=== PATIENT | male | born 1960 | race Caucasian/White ===

== ENCOUNTER → 2016-04-15 | Outpatient (CLI) | payer BC ==
--- NOTE | 2016-04-15 13:02 | XR ---
EXAMINATION TYPE: XR lumbar spine 2 or 3V DATE OF EXAM: 04/15/2016 12:46 PM CLINICAL HISTORY: Low back pain for 2 months. TECHNIQUE: Frontal and lateral images of the lumbar spine are obtained. COMPARISON: None FINDINGS: There are 5 lumbar type vertebral bodies identified. The lumbar spine shows satisfactory alignment without evidence of acute fracture or dislocation. Vertebral body heights are within normal limits. There is multilevel disc space narrowing that is fairly moderate most levels and moderate to severe at L4-L5 and L5-S1 levels with relative sparing of L3-L4 level where it is mild. There is mil d to moderate multilevel anterior and lateral spurring. Multilevel facet arthropathy is seen most pro nounced in lower lumbar levels. Some spinous process hypertrophy is noted. The overlying soft tissue appears unremarkable. IMPRESSION: Multilevel degenerative changes in the lumbar spine as detailed above.
== END | disposition home or self-care (01) ==
LOC: RADXRMAIN 12:10
PROVIDERS: ATTEND Family Medicine
DX: M47.816 Spondylosis without myelopathy or radiculopathy, lumbar region (principal)
CPT/HCPCS: 72100

== ENCOUNTER 2016-06-07 18:39 | Observation (INO) | payer BC ==
[2016-06-07 19:19] LABS: Basophils # (A) 0.1 k/uL (0-0.2); Basophils % (A) 1 %; CH 28.2; CHCM 33.7; Eosinophils # (A) 0.2 k/uL (0-0.7); Eosinophils % (A) 2 %; HCT 47.1 % (39.0-53.0); HDW 2.61; HGB 16.2 gm/dL (13.0-17.5); Luc # (Auto) 0.16; Luc % (Auto) 2; Lymphocytes # (A) 2.9 k/uL (1.0-4.8); Lymphocytes % (A) 26 %; MCHC 34.5 g/dL (31.0-37.0); MCV 84.1 fL (80.0-100.0); Mean Platelet Volume 6.8; Monocytes # (A) 0.5 k/uL (0-1.0); Monocytes % (A) 4 %; Neutrophils # (A) 7.3 k/uL (1.3-7.7); Neutrophils % (A) 66 %; RDW 13.1 % (11.5-15.5); WBC 11.1 k/uL (3.8-10.6); WBC (Perox) 10.69
[2016-06-07 19:27] LABS: ALT 30 U/L (21-72); AST 24 U/L (17-59); Alkaline Phosphatase 72 U/L (38-126); Amylase 61 U/L (30-110); Anion Gap 12 mmol/L; Blood Urea Nitrogen 18 mg/dL (9-20); Calcium 9.4 mg/dL (8.4-10.2); Carbon Dioxide 25 mmol/L (22-30); Chloride 106 mmol/L (98-107); Glucose 109 mg/dL (74-99); Magnesium 1.9 mg/dL (1.6-2.3); Non-African American GFR(MDRD) >60 (>60 ml/min/1.73 sqM); Potassium 3.9 mmol/L (3.5-5.1); Sodium 143 mmol/L (137-145); Total Bilirubin 0.8 mg/dL (0.2-1.3); Total Protein 7.6 g/dL (6.3-8.2)
--- NOTE | 2016-06-07 19:32 | XR ---
EXAMINATION TYPE: XR chest 1V portable DATE OF EXAM: 06/07/2016 7:25 PM COMPARISON: NONE INDICATION: Chest pain TECHNIQUE: Single frontal view of the chest is obtained. FINDINGS: The heart size is normal. The pulmonary vasculature is normal. The lungs are clear. IMPRESSION: 1. No acute pulmonary process.
[2016-06-07 19:40] LABS: Creatine Kinase 136 U/L (55-170)
[2016-06-07 19:42] LABS: INR 1.1 (<1.1); Partial Thromboplastin Time 27.6 sec (22.0-30.0); Prothrombin Time 10.6 sec (9.0-12.0)
[2016-06-07] MEDS ORDERED: SODIUM CHLORIDE 0.9% 500 ML IV STA (19:51)
--- NOTE | 2016-06-07 19:51 | ED ---
Chest Pain HPI - General Source: patient Mode of arrival: wheelchair Limitations: no limitations - History of Present Illness MD Complaint: chest pain Onset/Timin -: days(s) Onset: during rest Pain Location: left chest Pain Radiation: none Severity: moderate Quality: sharp Consistency: intermittent Improves With: nothing Worsens With: inspiration, movement Treatments Prior to Arrival: none <Luis Garcia - Last Filed: 06/07/16 19:47> <Shorty Aragon - Last Filed: 06/07/16 21:31> - General Chief Complaint: Chest Pain Stated Complaint: CHEST PAIN Time Seen by Provider: 06/07/16 19:06 - History of Present Illness Initial Comments: is a 56-year-old man who presents to be evaluated for left upper chest pain. He states that he can seemed isolated to a point in the left upper chest. He notes that the pain is moderate intensity, somewhat sharp somewhat aching, and that it is intermittent. He notes that he can make it worse with coughing or with reaching out with his left arm. The patient denies any associated symptoms. He denies diaphoresis, dyspnea, nausea or vomiting, lightheadedness or syncope. I reviewed that the nursing notes stated there was some shortness of breath but he states that it just made the pain worse if he took a deep breath. In addition patient has had some trouble with constipation. He has not had what he considers a real bowel movement in 1 week , and he has taken lactulose for this. (Luis Garcia) - Related Data Home Medications Medication Instructions Recorded Confirmed Lisinopril [Zestril] 5 mg PO DAILY 06/06/14 06/07/16 Allergies Allergy/AdvReac Type Severity Reaction Status Date / Time No Known Allergies Allergy Verified 06/07/16 19:21 Review of Systems ROS Other: All systems not noted in ROS Statement are negative. Constitutional: Denies: fever, chills Respiratory: Reports: as per HPI, cough. Denies: dyspnea, wheezes Cardiovascular: Reports: as per HPI, chest pain. Denies: palpitations, edema, syncope Gastrointestinal: Denies: abdominal pain, nausea, vomiting Genitourinary: Denies: dysuria, hematuria Musculoskeletal: Denies: back pain Skin: Denies: rash Neurological: Denies: headache, weakness <Luis Garcia - Last Filed: 06/07/16 19:47> ROS Other: All systems not noted in ROS Statement are negative. <Shorty Aragon - Last Filed: 06/07/16 21:31> ROS Statement: Those systems with pertinent positive or pertinent negative responses have been documented in the HPI. EKG Findings - EKG Comments: EKG Findings:: Low voltage QRS complex - EKG Results: EKG: interpreted by ERMD, sinus rhythm, normal axis EKG shows: tachycardia (Heart rate approximately 102 BPM) <RadhaLuis - Last Filed: 06/07/16 19:47> Past Medical History Past Medical History: Hyperlipidemia, Hypertension Additional Past Medical History / Comment(s): LASIK EYE SX History of Any Multi-Drug Resistant Organisms: None Reported Past Surgical History: Appendectomy, Orthopedic Surgery Additional Past Surgical History / Comment(s): LASIK. SALIVA GLANDS. 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 Smoking Status: Current every day smoker Past Alcohol Use History: None Reported Additional Past Alcohol Use History / Comment(s): STARTED SMOKING AT AGE 16 SMOKES 1 PPD, SMOKING CESSATION BOOKLET GIVEN TO PT. Past Drug Use History: None Reported - Past Family History Father Family Medical History: Cancer <RadhaLuis - Last Filed: 06/07/16 19:47> General Exam Limitations: no limitations <RadhaLuis - Last Filed: 06/07/16 19:47> Course <RadhaLuis - Last Filed: 06/07/16 19:47> <Shorty Aragon - Last Filed: 06/07/16 21:31> Vital Signs 06/07/16 06/07/16 06/07/16 18:47 19:48 21:10 Temperature 97.8 F Pulse Rate 101 H 91 79 Respiratory 18 20 20 Rate Blood Pressure 127/80 111/71 117/73 O2 Sat by Pulse 98 99 98 Oximetry - Reevaluation(s) Reevaluation #1: 06/07/16 21:30 Was endorsed me by Dr. Garcia at our shift change at 2100. Patient still having some left-sided chest pain is reproducible he's been having other symptoms however. He is a smoker he does have demonstrated risk factors for heart disease. He will be admitted with consultation by cardiology. (Shorty Aragon) Disposition <Luis Garcia - Last Filed: 06/07/16 19:47> <Shorty Aragon - Last Filed: 06/07/16 21:31> Clinical Impression: Unstable angina pectoris, Atypical chest pain Disposition: ADMITTED IP TO THIS HOSP Condition: Stable
[2016-06-07 19:52] LABS: Creatine Kinase MB 1.7 ng/mL (0.0-2.4); Troponin I <0.012 ng/mL (0.000-0.034)
[2016-06-07] MEDS ORDERED: NITROGLYCERIN SL TABS 0.4 MG TAB SUBLINGUAL PRN (21:31)
[2016-06-07] MEDS ORDERED: HEPARIN SODIUM,PORCINE 5,000 UNIT/ML 1 ML VIAL IV ONE (21:31)
[2016-06-07] MEDS ORDERED: NICOTINE 21MG/24HR PATCH TRANSDERM STA (21:34)
[2016-06-07] MEDS ORDERED: HEPARIN SODIUM,PORCINE/D5W PMX 25,000 UNIT in DEXTROSE/WATER 1 500ML.BAG IV SCH (21:45)
--- NOTE | 2016-06-07 21:47 | ED ---
Medical Decision Making - Medical Decision Making The patient decided he does not want to stay in hospital and will be going home with follow-up with his doctor. I did advise him to stop smoking and take a baby aspirin every day. I did discuss different types of symptoms with him. I did recommend that if any symptoms which I did describe including chest pain nausea diaphoresis recur that he should come back to the hospital for reevaluation. His was present. He does understand and is willing to take full responsibility. - Lab Data Result diagrams: 06/07/16 18:40 06/07/16 18:40 Lab Results 06/07/16 06/07/16 06/07/16 Range/Units 18:40 18:40 18:40 WBC 11.1 H (3.8-10.6) k/uL RBC 5.60 (4.30-5.90) m/uL Hgb 16.2 (13.0-17.5) gm/dL Hct 47.1 (39.0-53.0) % MCV 84.1 (80.0-100.0) fL MCH 29.0 (25.0-35.0) pg MCHC 34.5 (31.0-37.0) g/dL RDW 13.1 (11.5-15.5) % Plt Count 243 (150-450) k/uL Neutrophils % 66 % Lymphocytes % 26 % Monocytes % 4 % Eosinophils % 2 % Basophils % 1 % Neutrophils # 7.3 (1.3-7.7) k/uL Lymphocytes # 2.9 (1.0-4.8) k/uL Monocytes # 0.5 (0-1.0) k/uL Eosinophils # 0.2 (0-0.7) k/uL Basophils # 0.1 (0-0.2) k/uL PT (9.0-12.0) sec INR (<1.1) APTT (22.0-30.0) sec D-Dimer (<0.60) mg/L FEU Sodium 143 (137-145) mmol/L Potassium 3.9 (3.5-5.1) mmol/L Chloride 106 (98-107) mmol/L Carbon Dioxide 25 (22-30) mmol/L Anion Gap 12 mmol/L BUN 18 (9-20) mg/dL Creatinine 1.02 (0.66-1.25) mg/dL Est GFR (MDRD) Af Amer >60 (>60 ml/min/1.73 sqM) Est GFR (MDRD) Non-Af >60 (>60 ml/min/1.73 sqM) Glucose 109 H (74-99) mg/dL Calcium 9.4 (8.4-10.2) mg/dL Magnesium 1.9 (1.6-2.3) mg/dL Total Bilirubin 0.8 (0.2-1.3) mg/dL AST 24 (17-59) U/L ALT 30 (21-72) U/L Alkaline Phosphatase 72 (38-126) U/L Total Creatine Kinase 136 (55-170) U/L CK-MB (CK-2) 1.7 (0.0-2.4) ng/mL CK-MB (CK-2) Rel Index 1.3 Troponin I <0.012 (0.000-0.034) ng/mL Total Protein 7.6 (6.3-8.2) g/dL Albumin 4.3 (3.5-5.0) g/dL Amylase 61 (30-110) U/L Lipase 59 (23-300) U/L Influenza Type A RNA (Not Detectd) Influenza Type B (PCR) (Not Detectd) 06/07/16 06/07/16 06/07/16 Range/Units 18:40 18:40 20:08 WBC (3.8-10.6) k/uL RBC (4.30-5.90) m/uL Hgb (13.0-17.5) gm/dL Hct (39.0-53.0) % MCV (80.0-100.0) fL MCH (25.0-35.0) pg MCHC (31.0-37.0) g/dL RDW (11.5-15.5) % Plt Count (150-450) k/uL Neutrophils % % Lymphocytes % % Monocytes % % Eosinophils % % Basophils % % Neutrophils # (1.3-7.7) k/uL Lymphocytes # (1.0-4.8) k/uL Monocytes # (0-1.0) k/uL Eosinophils # (0-0.7) k/uL Basophils # (0-0.2) k/uL PT 10.6 (9.0-12.0) sec INR 1.1 (<1.1) APTT 27.6 (22.0-30.0) sec D-Dimer 0.36 (<0.60) mg/L FEU Sodium (137-145) mmol/L Potassium (3.5-5.1) mmol/L Chloride (98-107) mmol/L Carbon Dioxide (22-30) mmol/L Anion Gap mmol/L BUN (9-20) mg/dL Creatinine (0.66-1.25) mg/dL Est GFR (MDRD) Af Amer (>60 ml/min/1.73 sqM) Est GFR (MDRD) Non-Af (>60 ml/min/1.73 sqM) Glucose (74-99) mg/dL Calcium (8.4-10.2) mg/dL Magnesium (1.6-2.3) mg/dL Total Bilirubin (0.2-1.3) mg/dL AST (17-59) U/L ALT (21-72) U/L Alkaline Phosphatase (38-126) U/L Total Creatine Kinase (55-170) U/L CK-MB (CK-2) (0.0-2.4) ng/mL CK-MB (CK-2) Rel Index Troponin I (0.000-0.034) ng/mL Total Protein (6.3-8.2) g/dL Albumin (3.5-5.0) g/dL Amylase (30-110) U/L Lipase (23-300) U/L Influenza Type A RNA Not Detected (Not Detectd) Influenza Type B (PCR) Not Detected (Not Detectd) Disposition Clinical Impression: Unstable angina pectoris, Atypical chest pain Disposition: Left Against Medical Advice Condition: Stable
--- NOTE | 2016-06-07 21:53 | ED ---
Medical Decision Making - Medical Decision Making Patient after consultation with his is decided he will stay he will be admitted as originally planned. - Lab Data Result diagrams: 06/07/16 18:40 06/07/16 18:40 Lab Results 06/07/16 06/07/16 06/07/16 Range/Units 18:40 18:40 18:40 WBC 11.1 H (3.8-10.6) k/uL RBC 5.60 (4.30-5.90) m/uL Hgb 16.2 (13.0-17.5) gm/dL Hct 47.1 (39.0-53.0) % MCV 84.1 (80.0-100.0) fL MCH 29.0 (25.0-35.0) pg MCHC 34.5 (31.0-37.0) g/dL RDW 13.1 (11.5-15.5) % Plt Count 243 (150-450) k/uL Neutrophils % 66 % Lymphocytes % 26 % Monocytes % 4 % Eosinophils % 2 % Basophils % 1 % Neutrophils # 7.3 (1.3-7.7) k/uL Lymphocytes # 2.9 (1.0-4.8) k/uL Monocytes # 0.5 (0-1.0) k/uL Eosinophils # 0.2 (0-0.7) k/uL Basophils # 0.1 (0-0.2) k/uL PT (9.0-12.0) sec INR (<1.1) APTT (22.0-30.0) sec D-Dimer (<0.60) mg/L FEU Sodium 143 (137-145) mmol/L Potassium 3.9 (3.5-5.1) mmol/L Chloride 106 (98-107) mmol/L Carbon Dioxide 25 (22-30) mmol/L Anion Gap 12 mmol/L BUN 18 (9-20) mg/dL Creatinine 1.02 (0.66-1.25) mg/dL Est GFR (MDRD) Af Amer >60 (>60 ml/min/1.73 sqM) Est GFR (MDRD) Non-Af >60 (>60 ml/min/1.73 sqM) Glucose 109 H (74-99) mg/dL Calcium 9.4 (8.4-10.2) mg/dL Magnesium 1.9 (1.6-2.3) mg/dL Total Bilirubin 0.8 (0.2-1.3) mg/dL AST 24 (17-59) U/L ALT 30 (21-72) U/L Alkaline Phosphatase 72 (38-126) U/L Total Creatine Kinase 136 (55-170) U/L CK-MB (CK-2) 1.7 (0.0-2.4) ng/mL CK-MB (CK-2) Rel Index 1.3 Troponin I <0.012 (0.000-0.034) ng/mL Total Protein 7.6 (6.3-8.2) g/dL Albumin 4.3 (3.5-5.0) g/dL Amylase 61 (30-110) U/L Lipase 59 (23-300) U/L Influenza Type A RNA (Not Detectd) Influenza Type B (PCR) (Not Detectd) 06/07/16 06/07/16 06/07/16 Range/Units 18:40 18:40 20:08 WBC (3.8-10.6) k/uL RBC (4.30-5.90) m/uL Hgb (13.0-17.5) gm/dL Hct (39.0-53.0) % MCV (80.0-100.0) fL MCH (25.0-35.0) pg MCHC (31.0-37.0) g/dL RDW (11.5-15.5) % Plt Count (150-450) k/uL Neutrophils % % Lymphocytes % % Monocytes % % Eosinophils % % Basophils % % Neutrophils # (1.3-7.7) k/uL Lymphocytes # (1.0-4.8) k/uL Monocytes # (0-1.0) k/uL Eosinophils # (0-0.7) k/uL Basophils # (0-0.2) k/uL PT 10.6 (9.0-12.0) sec INR 1.1 (<1.1) APTT 27.6 (22.0-30.0) sec D-Dimer 0.36 (<0.60) mg/L FEU Sodium (137-145) mmol/L Potassium (3.5-5.1) mmol/L Chloride (98-107) mmol/L Carbon Dioxide (22-30) mmol/L Anion Gap mmol/L BUN (9-20) mg/dL Creatinine (0.66-1.25) mg/dL Est GFR (MDRD) Af Amer (>60 ml/min/1.73 sqM) Est GFR (MDRD) Non-Af (>60 ml/min/1.73 sqM) Glucose (74-99) mg/dL Calcium (8.4-10.2) mg/dL Magnesium (1.6-2.3) mg/dL Total Bilirubin (0.2-1.3) mg/dL AST (17-59) U/L ALT (21-72) U/L Alkaline Phosphatase (38-126) U/L Total Creatine Kinase (55-170) U/L CK-MB (CK-2) (0.0-2.4) ng/mL CK-MB (CK-2) Rel Index Troponin I (0.000-0.034) ng/mL Total Protein (6.3-8.2) g/dL Albumin (3.5-5.0) g/dL Amylase (30-110) U/L Lipase (23-300) U/L Influenza Type A RNA Not Detected (Not Detectd) Influenza Type B (PCR) Not Detected (Not Detectd) Disposition Clinical Impression: Unstable angina pectoris, Atypical chest pain Disposition: ADMITTED IP TO THIS [facility] Condition: Stable Referrals: Rikki Lake DO [Primary Care Provider] - 1-2 days
[2016-06-07] MEDS: SODIUM CHLORIDE 0.9% 1,000 ML IV SCH (21:59)
[2016-06-07 23:13] VITALS: BMI 27.4
[2016-06-08] MEDS: NITROGLYCERIN OINT 1 INCH/GM PACKET TOPICAL SCH ×2 (00:15→06:15)
[2016-06-08 01:27] LABS: Creatine Kinase 113 U/L (55-170)
[2016-06-08 01:41] LABS: Troponin I <0.012 ng/mL (0.000-0.034)
[2016-06-08] MEDS ORDERED: HEPARIN SODIUM,PORCINE 5,000 UNIT/ML 1 ML VIAL IV PRN (04:11)
[2016-06-08 04:34] LABS: Cholesterol 163 mg/dL (<200); HDL Cholesterol 32 mg/dL (40-60); Triglycerides 74 mg/dL (<150)
[2016-06-08 07:59] LABS: Creatine Kinase 118 U/L (55-170)
[2016-06-08 08:11] LABS: Creatine Kinase MB 1.1 ng/mL (0.0-2.4); Troponin I <0.012 ng/mL (0.000-0.034)
--- NOTE | 2016-06-08 09:26 | P.CRDCN ---
History of Present Illness Consult date: 06/08/16 Requesting physician: Arturo Mancini Consult reason: chest pain Chief complaint: Chest pain History of present illness: This is a 56-year-old gentleman with known history of hypertension, hyperlipidemia, nicotine dependence, who presents to the hospital with symptoms of chest pains. According to the patient, he describes his symptoms as a strain type of feeling in his chest, he's been having them somewhat constant for the past couple of days. Patient states that when he coughs or takes a deep breath the symptoms worsen considerably. Patient has been experiencing mild cough and shortness of breath over the past few days, experiencing chills and night sweats. He denies any prior history of coronary artery disease, no prior cardiac workup, family history for premature coronary artery disease is negative. Laboratory data was reviewed, WBC 11.1, hemoglobin 16.2, platelet count 243. Potassium 3.9, BUN 18, creatinine 1.02. Troponins have been negative 3. Influenza A and B-. Cholesterol 163, triglycerides 74, LDL 116, HDL 32. Patient has been prescribed Lipitor, he states he has not filled that prescription in several months. Blood pressure 101/60 with a heart rate in the 60s, 94% on room air. Patient is currently on aspirin, heparin drip, lisinopril 5 mg daily, nicotine patch. Chest x-ray admission negative. At the time of my examination this morning, patient is currently chest pain-free, denies any palpitations, no dizziness or lightheadedness. Past Medical History Past Medical History: Hyperlipidemia, Hypertension Additional Past Medical History / Comment(s): LASIK EYE SX, pitutary tumor with removal in 2014, hormone imbalance in past after pituitary removal pt unsure exactly which levels were off History of Any Multi-Drug Resistant Organisms: None Reported Past Surgical History: Appendectomy, Orthopedic Surgery Additional Past Surgical History / Comment(s): LASIK. SALIVA GLANDS. 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 Smoking Status: Current every day smoker Past Alcohol Use History: None Reported Additional Past Alcohol Use History / Comment(s): STARTED SMOKING AT AGE 16 SMOKES 1 PPD. Past Drug Use History: None Reported - Past Family History Father Family Medical History: Cancer Medications and Allergies Home Medications Medication Instructions Recorded Confirmed Type Lisinopril [Zestril] 5 mg PO DAILY 06/06/14 06/07/16 History Allergies Allergy/AdvReac Type Severity Reaction Status Date / Time No Known Allergies Allergy Verified 06/07/16 19:21 Physical Exam Vitals: Vital Signs Temp Pulse Pulse Pulse Resp BP BP 06/08/16 09:02 06/08/16 07:57 97.8 F 62 16 101/63 06/08/16 04:00 99.1 F 74 18 107/66 06/08/16 00:00 83 16 06/07/16 23:35 71 16 06/07/16 22:30 98.4 F 74 16 124/74 06/07/16 22:08 98 F 68 16 115/70 Pulse Ox 06/08/16 09:02 96 06/08/16 07:57 96 06/08/16 04:00 94 L 06/08/16 00:00 06/07/16 23:35 06/07/16 22:30 97 06/07/16 22:08 98 Intake and Output 06/07/16 06/08/16 06/08/16 22:59 06:59 14:59 Intake Total 166 Balance 166 Intake: Intake, IV Titration 166 Amount Heparin Sodium,Porcine/ 166 D5w Pmx 25,000 unit In Dextrose/Water 1 500ml. bag @ 12 UNITS/KG/HR 23. 29 mls/hr IV .[id number] PENDING SALE TO [facility] Rx#:[id number] Other: Voiding Method Toilet # Voids 2 Weight 97.069 kg 97.069 kg PHYSICAL EXAMINATION: HEENT: [Head is atraumatic, normocephalic. Pupils equal, round. Neck is supple. There is no elevated jugular venous pressure.] HEART EXAMINATION: [Heart S1, S2 normal. No murmur or gallop heard.] CHEST EXAMINATION:[ Lungs are clear to auscultation and precussion. No chest wall tenderness is noted on palpation or with deep breathing.] ABDOMEN: [ Soft, nontender. Bowel sounds are heard. No organomegaly noted]. EXTREMITIES:[ 2+ peripheral pulses with no evidence of peripheral edema and no calf tenderness noted]. NEUROLOGIC [patient is awake, alert and oriented -3.] . Results 06/07/16 18:40 06/07/16 18:40 Cardiac Enzymes 06/08/16 06/08/16 Range/Units 01:00 06:58 CK-MB (CK-2) 1.0 1.1 (0.0-2.4) ng/mL Troponin I <0.012 <0.012 (0.000-0.034) ng/mL Coagulation 06/08/16 Range/Units 03:48 APTT 36.8 H (22.0-30.0) sec Lipids 06/08/16 Range/Units 03:48 Triglycerides 74 (<150) mg/dL Cholesterol 163 (<200) mg/dL HDL Cholesterol 32 L (40-60) mg/dL Current Medications Generic Name Dose Route Start Last Admin Trade Name Freq PRN Reason Stop Dose Admin Aspirin 325 mg 06/08/16 09:00 Aspirin PO DAILY PENDING SALE TO [facility] Heparin Sodium (Porcine) 0 unit 06/08/16 04:11 06/08/16 06:17 Heparin IV 4,000 unit PER PROTOCOL PRN Administration Low PTT Protocol Heparin Sodium/Dextrose 25,000 500 mls @ 23.29 mls/hr 06/07/16 21:45 06:17 unit/ IV Solution IV 13.39 units/kg/hr .[id number] KAMILA 26 mls/hr Protocol Titration 12 UNITS/KG/HR Sodium Chloride 1,000 mls @ 20 mls/hr 06/07/16 21:45 06/07/16 21:59 Saline 0.9% IV 20 mls/hr .Q24H KAMILA Administration Lisinopril 5 mg 06/08/16 09:00 Zestril PO DAILY PENDING SALE TO [facility] Nitroglycerin 1 inch 06/08/16 00:00 06/08/16 06:15 Nitro-Bid Oint TOPICAL Not Given Q6HR PENDING SALE TO [facility] Nitroglycerin 0.4 mg 06/07/16 21:31 Nitrostat SUBLINGUAL Q5M PRN Chest Pain Intake and Output 06/07/16 06/08/16 06/08/16 22:59 06:59 14:59 Intake Total 166 Balance 166 Intake: Intake, IV Titration 166 Amount Heparin Sodium,Porcine/ 166 D5w Pmx 25,000 unit In Dextrose/Water 1 500ml. bag @ 12 UNITS/KG/HR 23. 29 mls/hr IV .[id number] K[facility]IL[facility] Rx#:[id number] Other: Voiding Method Toilet # Voids 2 Weight 97.069 kg 97.069 kg EKG Interpretations (text) EKG shows normal sinus rhythm with nonspecific anterior lateral ST-T wave changes Assessment and Plan Plan: Assessment and plan #1 atypical chest discomfort, cardiac enzymes and troponins negative 3. EKG shows normal sinus rhythm with nonspecific anterior lateral ST-T wave changes #2 hypertension #3 hyperlipidemia #4 nicotine dependence Plan We will obtain an echocardiogram with Doppler study. Discontinue IV heparin and Nitropaste. Stress echocardiographic study tomorrow. Further recommendations to follow. DNP note has been reviewed, I agree with a documented findings and plan of care. Patient was seen and examined.
[2016-06-08] MEDS: ASPIRIN 325 MG TAB PO SCH ×2 (10:16→10:20)
[2016-06-08] MEDS: LISINOPRIL 5 MG TAB PO SCH (10:16)
[2016-06-08] MEDS: NICOTINE 21MG/24HR PATCH TRANSDERM SCH (13:57)
[2016-06-08] MEDS: PANTOPRAZOLE 40 MG/10 ML VIAL IVP SCH (15:34)
[2016-06-08] MEDS: POLYETHYLENE GLYCOL 3350 17 GM POWD.PACK PO SCH (15:34)
--- NOTE | 2016-06-08 16:32 | HP ---
DATE OF ADMISSION: Patient came in with complaints of chest pain which started yesterday, nonexertional in nature. May be related to food, in the left side of the chest, nonradiating, a burning sensation associated with some nausea and patient has a constant lightheadedness lately he says. 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 Patient denied any fever, chills. Patient's chest pain has some pleuritic component with negative d-dimer and normal chest x-ray. Patient's chest pain is nonreproducible, not associated with diaphoresis. Patient denied any previous history of myocardial infarction or any work-up for heart. Patient was evaluated by Cardiology and they are recommending stress test tomorrow. EKG and troponins, no significant abnormality was appreciated. Past medical history significant for hypertension, hyperlipidemia. REVIEW OF SYSTEMS: CONSTITUTIONAL: No fever, no malaise, no fatigue. HEENT: No recent visual problems or hearing problems. Denied any sore throat. CARDIOVASCULAR: As described in HPI. PULMONARY: No shortness of breath, no cough, no hemoptysis. GASTROINTESTINAL: No diarrhea, no nausea, no vomiting, no abdominal pain. Normoactive bowel sounds. NEUROLOGICAL: No headaches, no weakness, no numbness. HEMATOLOGICAL: Denies any bleeding or petechiae. GENITOURINARY: Denies any burning micturition, frequency, or urgency. MUSCULOSKELETAL/RHEUMATOLOGICAL: Denies any joint pain, swelling, or any muscle pain. ENDOCRINE: Denies any polyuria or polydipsia. The rest of the 14 point review of systems is negative. Patient's pas surgical history of appendectomy, orthopedic surgery. SOCIAL HISTORY: Patient does smoke a pack per day. Denied any alcohol abuse or any drug abuse. FAMILY HISTORY: Father had cancer. PHYSICAL EXAMINATION: Temperature 98.1, pulse of 69, respiratory rate of 16, blood pressure 107/78, saturating at 99% on room air. GENERAL: The patient is alert and oriented x3, not in any acute distress. Well developed, well nourished. HEENT: Pupils are round and equally reacting to light. EOMI. No scleral icterus. No conjunctival pallor. Normocephalic, atraumatic. No pharyngeal erythema. No thyromegaly. CARDIOVASCULAR: S1 and S2 present. No murmurs, rubs, or gallops. PULMONARY: Chest is clear to auscultation, no wheezing or crackles. ABDOMEN: Soft, nontender, nondistended, normoactive bowel sounds. No palpable organomegaly. MUSCULOSKELETAL: No joint swelling or deformity. EXTREMITIES: No cyanosis, clubbing, or pedal edema. NEUROLOGICAL: Gross neurological examination did not reveal any focal deficits. SKIN: No rashes. LABORATORY DATA: CBC, CMP are abnormal for minimally elevated WBC count of 11,100 and d-dimer is negative. Chest x-ray is essentially within normal limits. ASSESSMENT AND PLAN: 1. Chest pain, patient will be admitted to rule out acute coronary artery syndrome and unstable angina. 2. Hypertension. 3. Hyperlipidemia. Patient's LDL is essentially at the target level at this point of time. Patient's chest pain is mostly atypical in nature, I cannot rule out gastritis, because of which I will start him on proton pump and see how he responds. Patient has either that or musculoskeletal chest pain. 4. Nicotine dependence counseling was provided. Patient has a history of pituitary adenoma that was removed in the past. 5. Patient's home medications include lisinopril.
[2016-06-09] MEDS: SODIUM CHLORIDE 0.9% 1,000 ML IV SCH (08:26)
[2016-06-09] MEDS: NICOTINE 21MG/24HR PATCH TRANSDERM SCH (08:29)
[2016-06-09] MEDS: PANTOPRAZOLE 40 MG/10 ML VIAL IVP SCH (08:30)
--- NOTE | 2016-06-09 11:21 | ECHOF ---
Referral Reason:chest pain MEASUREMENTS -------- HEIGHT: 188.0 cm WEIGHT: 97.1 kg BP: 106/72 RVIDd: 3.5 cm (< 3.3) IVSd: 0.8 cm (0.6 - 1.1) LVIDd: 4.8 cm (3.9 - 5.3) LVPWd: 0.8 cm (0.6 - 1.1) IVSs: 2.0 cm LVIDs: 3.2 cm LVPWs: 1.5 cm LA Diam: 3.0 cm (2.7 - 3.8) LAESV Index (A-L): 18.16 ml/m Ao Diam: 3.4 cm (2.0 - 3.7) AV Cusp: 2.0 cm (1.5 - 2.6) LA Diam: 4.3 cm (2.7 - 3.8) MV EXCURSION: 12.495 mm (> 18.000) MV EF SLOPE: 94 mm/s (70 - 150) EPSS: 0.7 cm MV E Mg: 0.54 m/s MV DecT: 240 ms MV A Mg: 0.44 m/s MV E/A Ratio: 1.23 RAP: 5.00 mmHg RVSP: 17.30 mmHg FINDINGS -------- Sinus rhythm. This was a technically adequate study. Left ventricular wall thickness is normal. Overall left ventricular systolic function is low-normal with, an EF between 50 - 55 %. The right ventricle is mild to moderately enlarged. Normal LA size by volume 22+/-6 ml/m2. The right atrium is normal in size. The aortic valve is trileaflet and appears structurally normal. Mild mitral annular calcification present. There is trace mitral regurgitation. Trace tricuspid regurgitation present. Right ventricular systolic pressure is normal at < 35 mmHg. Pulmonic valve appears structurally normal. The aortic root size is normal. The inferior vena cava is mildly dilated. There is no pericardial effusion. CONCLUSIONS -------- 1. Sinus rhythm. 2. There is trace mitral regurgitation. 3. Trace tricuspid regurgitation present. 4. Right ventricular systolic pressure is normal at < 35 mmHg. 5. Pulmonic valve appears structurally normal. 6. The aortic root size is normal. 7. The inferior vena cava is mildly dilated. 8. There is no pericardial effusion. 9. This was a technically adequate study. 10. Left ventricular wall thickness is normal. 11. Overall left ventricular systolic function is low-normal with, an EF between 50 - 55 %. 12. The right ventricle is mild to moderately enlarged. 13. Normal LA size by volume 22+/-6 ml/m2. 14. The right atrium is normal in size. 15. The aortic valve is trileaflet and appears structurally normal. 16. Mild mitral annular calcification present. SEPARATOR TENDER: Bello Wolf RDCS
[2016-06-09 11:39] VITALS: BP 110/76; PULSE 78; TEMP 98.7
[2016-06-09] MEDS: LISINOPRIL 5 MG TAB PO SCH (11:41)
[2016-06-09] MEDS: POLYETHYLENE GLYCOL 3350 17 GM POWD.PACK PO SCH (11:41)
--- NOTE | 2016-06-09 12:17 | ECHOS ---
DATE OF SERVICE: 06/09/2016 AGE: 56Y SEX: M HT: 74" WT: 214 lbs. Protocol Kunal: X Others: Stress Echo Stage: 4 Dur. of Exercise: 9:30 *Heart Rate Blood Pressure *Rest: 71 Rest: 102/51 * *Max. Achieved: 149 Maximum BP: 197/78 85% PMHR: 139 100% PMHR: 164 *METS: 11.0 INDICATIONS: Chest pain. MEDICATIONS: - Baseline EKG shows sinus rhythm with nonspecific inferolateral ST-T wave changes. Patient exercised on Kunal protocol for a total of 9-1/2 minutes achieving 11 METs, 85% of predicted maximal heart rate without chest pain. At peak exercise, occasional PVCs are noted and there was [address] segment depression noted. Baseline echo shows normal left ventricular size, wall motion and systolic function. Postexercise, the basal inferior wall seemed to become hypokinetic. CONCLUSION: 1. Good exercise tolerance. 2. Nondiagnostic EKG changes secondary to baseline EKG abnormalities. 3. Abnormal stress echocardiogram showing exercise-induced wall motion abnormality involving basal inferior wall.
[2016-06-09 12:54] VITALS: RESP 18
--- NOTE | 2016-06-09 13:02 | PN ---
This patient was admitted yesterday with symptoms suggestive of atypical angina. EKGs and cardiac enzymes were negative. Patient is feeling well. I reviewed myself the results of the stress echocardiographic study. There were nonspecific ST-T changes and the echocardiographic study does not show any significant wall motion abnormality to suggest stress-induced ischemia. In view that this patient's chest pains are atypical and stress test does not show any significant ischemia, I have reassured the patient we will continue the medical treatment and follow him as an outpatient.
--- NOTE | 2016-06-10 06:46 | DS ---
DATE OF ADMISSION: 06/07/2016 DATE OF DISCHARGE: 06/09/2016 Patient is admitted with chest pain. Patient was admitted for rule out acute coronary artery syndrome. Patient underwent stress test. If it is negative, patient will be discharged. I cannot completely rule out gastroesophageal reflux disease for cause of his symptoms because of which I will put him on 14 days of Prilosec and I really do not believe patient will need lisinopril, that will be discontinued. Patient will follow with Dr. Rikki Lake in about 3 to 4 days. Patient's blood pressure is n the low-normal side with systolic in low 100s. Patient was seen and examined on the day of discharge. Vitals are stable. PHYSICAL EXAMINATION: GENERAL: The patient is alert and oriented x3, not in any acute distress. Well developed, well nourished. HEENT: Pupils are round and equally reacting to light. EOMI. No scleral icterus. No conjunctival pallor. Normocephalic, atraumatic. No pharyngeal erythema. No thyromegaly. CARDIOVASCULAR: S1 and S2 present. No murmurs, rubs, or gallops. PULMONARY: Chest is clear to auscultation, no wheezing or crackles. ABDOMEN: Soft, nontender, nondistended, normoactive bowel sounds. No palpable organomegaly. MUSCULOSKELETAL: No joint swelling or deformity. EXTREMITIES: No cyanosis, clubbing, or pedal edema. NEUROLOGICAL: Gross neurological examination did not reveal any focal deficits. SKIN: No rashes. FINAL DIAGNOSES: 1. Chest pain, rule out acute coronary artery syndrome and unstable angina. Patient underwent stress test. If it is negative, patient will be discharged. 2. Hypertension. Patient's blood pressures are on the low normal side. I do not believe patient will need lisinopril, that will be discontinued. 3. Possibility of gastritis for which patient will be discharged on 14 days of empiric proton pump inhibitor. 4. Dietary counseling with provided for mild hyperlipidemia. Patient's LDL 116. DISCHARGE DIET: Cardiac. Activity as tolerated. Follow with Dr. Rikki Lake in 3 to 7 days.
== END 2016-06-09 13:16 | disposition home or self-care (01) ==
LOC: EC 18:39 → UNDOADMOB 21:31 → 3OBS 21:31
PROVIDERS: ADMIT Internal Medicine; ATTEND Internal Medicine
DX: R07.89 Other chest pain (principal); R05 Cough; R42 Dizziness and giddiness; R06.02 Shortness of breath; R61 Generalized hyperhidrosis; R68.83 Chills (without fever); I10 Essential (primary) hypertension; E78.5 Hyperlipidemia, unspecified; K59.00 Constipation, unspecified; Z79.899 Other long term (current) drug therapy; F17.200 Nicotine dependence, unspecified, uncomplicated
CPT/HCPCS: 96376; 96361 ×2; 99285; 36415; 94760; 93005; 93350; 93017; 93306; 85379; 80061; 80053; 82150; 82550 ×2; 82553 ×2; 83690; 83735; 84484 ×2; 85025; 85610; 85730 ×2; 87502; 71010; G0378 ×3; S4990 ×3; J1644 ×3; C9113 ×2; 96365; 96366; 96375